=== PATIENT | female | born 1960 | race Caucasian/White ===

== ENCOUNTER → 2024-08-16 10:23 | Outpatient (REF) | payer MEDICARE, SELFPAY | LOC: HWRAD 10:23 | PROVIDERS: ATTENDING PHYSICIAN Internal Medicine Critical Care Medicine; FAMILY PHYSICIAN Student in an Organized Health Care Education/Training Program | DX: R06.02 Shortness of breath (principal) | CPT/HCPCS: 71046 ==

== ENCOUNTER → 2025-02-10 09:55 | Outpatient (REF) | payer MEDICARE, SELFPAY | LOC: HWRCS 09:55 | PROVIDERS: ATTENDING PHYSICIAN Student in an Organized Health Care Education/Training Program | DX: F32.A Depression, unspecified (principal); I27.20 Pulmonary hypertension, unspecified; G43.009 Migraine without aura, not intractable, without status migrainosus; J34.89 Other specified disorders of nose and nasal sinuses; E78.00 Pure hypercholesterolemia, unspecified | CPT/HCPCS: 93306 ==